=== PATIENT | female | born 1995 | race Caucasian/White ===

== ENCOUNTER 2017-07-20 05:08 | Day surgery (SDC) | payer SELFPAY ==
--- NOTE | 2017-07-19 11:48 | GHP ---
[f rep st] PREOP HISTORY AND PHYSICAL DATE OF PROCEDURE: 07/20/2017 at 7:15 a.m. SURGERY TO BE PERFORMED: Left Bartholin gland cyst marsupialization. HISTORY OF PRESENT ILLNESS: Mariana is a 22-year-old 0 who first presented with a persistent vaginal cyst for the last 2-1/2 weeks. It started off small, was growing, and is now increasing in pain. It was not drained. She was seen in the Urgent Care on 07/10/2017 and given p.o. Bactrim for 3 days , but no procedures were attempted to drain or open it up. She denies fever, chills, myalgia, or any systemic flu-like symptoms. She does have a history of folliculitis, but never any persistent Bartholin's glands or any other vulvar gland cysts. She was first evaluated on 07/15/2017 and this was found to be 2 to 3 cm and fluctuant. I and D was performed, however, the Bartholin's gland is deep and we had a difficult time entering the cyst wall. Two different incisions were made to attempt to drain the cyst and a Word catheter was placed in the inner labial incision to induce drainage. The patient was continued on her Bactrim and instructed to continue on sitz baths twice a day and return to the office on 07/19/2017. Today her cyst is persistent and increasing in pain. She has completed her Bactrim course and has tried sitz baths. The Word catheter was still in place and the cyst was persistent. I removed the Word catheter and she is in increasing pain. I offered another office I and D versus taking her to the operating room to do a marsupialization and the patient prefers to have anesthesia and a marsupialization for her persistent Bartholin's gland cyst. PAST GYNECOLOGIC HISTORY: She has a Mirena IUD in place and does not have regular periods. This was placed without difficulty. She has a history of an abnormal Pap in 2014 with ASCUS positive HPV. Biopsies were negative. Repeat Paps have been normal since. No other history of any STDs. She is 1 and has never been . PAST MEDICAL HISTORY: Asthma, worse in childhood. She was seen in the ER several times, but never hospitalized. She uses a metered-dose inhaler for exercise as needed and also when she has a URI. She also has a history of frequent UTIs, which is better, and a history of anxiety. She is not on any medications and has not currently been treated with therapy. PAST SURGICAL HISTORY: None. ALLERGIES: Penicillin gave her a small childhood reaction, she thinks a rash. MEDICATIONS: She is not on any current prescribed medication, but she takes a multivitamin, vitamin B12, and CBD oil daily for her anxiety. FAMILY HISTORY: Her father of bile duct cancer at age 53. Her mother is living and healthy with mild hypertension. She also had an aunt who of bile duct cancer. No other significant family history. SOCIAL HISTORY: She is single with no current relationship. She denies tobacco use. She admits to alcohol daily and daily marijuana use as well as CBD oil, self medicating for her anxiety. No other drug use. 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 REVIEW OF SYSTEMS: Negative, except for pertinent positives as above in the HPI. PHYSICAL EXAMINATION: VITAL SIGNS: Blood pressure is 114/58 and weight is 160. GENERAL: She is a well-developed and well-nourished white female in no acute distress, except for pain from the Bartholin's gland cyst. LUNGS: Clear to auscultation bilaterally. HEART: Regular rate and rhythm with no murmur. ABDOMEN: Soft, nontender, and nondistended with normal bowel sounds. PELVIC: There is a 3 x 4 cm Bartholin's gland cyst in the left lower labia. The small incision areas have small purulent drainage. No foul odor. No aggressive bleeding. The patient is extremely tender on exam. ASSESSMENT AND PLAN: This is a 22-year-old 0 with a persistent left Bartholin's gland cyst that failed in office I and D. The patient will be taken to the operating room for marsupialization. She understands the risks and benefits with the risks including bleeding, infection, damage to the vulva and vagina, recurrence of Bartholin's gland cyst, and dyspareunia. She understood these risks and benefits and agreed to proceed. /[id number]/MODL MTDD
[2017-07-20] MEDS ORDERED: LIDOCAINE 1% 2 ML INJ ONE (05:35)
[2017-07-20] MEDS ORDERED: LIDOCAINE 1% 2 ML INJ ID PRN (06:10)
[2017-07-20] MEDS ORDERED: LR 1,000 ML IV ONE (06:10)
[2017-07-20] MEDS ORDERED: BUPIVACAINE 0.25% 30 ML SDV ONE (06:45)
[2017-07-20] MEDS ORDERED: MIDAZOLAM 2 MG/2 ML VIAL IVP ONE (07:04)
--- NOTE | 2017-07-20 07:06 | PDANEPAE ---
ANE History of Present Illness Batholini cyst ANE Past Medical History - Pulmonary History Hx Sleep Apnea: No Sleep Apnea Screening Result - Last Documented: Negative ANE Review of Systems Review of Systems: ANE Patient History - Allergies Allergies/Adverse Reactions: Penicillins Allergy (Unknown, Verified 07/20/17 05:48) Rash - Home Medications Home Medications: CEPHALEXIN 500 mg PO TID 07/20/17 [Last Taken 07/19/17 18:00] Hydrocodone Bit/Acetaminophen PO 07/20/17 [Last Taken 07/19/17 20:00] Multivitamin 07/20/17 [Last Taken 07/13/17] - NPO status NPO Since - Liquids (Date): 07/19/17 NPO Since - Liquids (Time): 20:30 NPO Since - Solids (Date): 07/19/17 NPO Since - Solids (Time): 20:00 ANE Labs/Vital Signs - Vital Signs Blood Pressure: 117/69 Heart Rate: 72 Respiratory Rate: 18 O2 Sat (%): 97 Height: 170.18 cm Weight: 71.668 kg ANE Physical Exam - Airway Neck exam: FROM Mallampati Score: Class 1 - Pulmonary Pulmonary: no respiratory distress - Cardiovascular Cardiovascular: regular rate and rhythym - ASA Status ASA Status: II ANE Anesthesia Plan Anesthesia Plan: GA w LMA
[2017-07-20] MEDS ORDERED: ceFAZolin 2 GM/SWFI 2 GM/20 ML SYR IVP ONE (07:08)
[2017-07-20] MEDS ORDERED: fentaNYL 100 MCG/2 ML INJ ONE ×3 (07:09→08:41)
[2017-07-20] MEDS ORDERED: PROPOFOL 200 MG/20 ML VIAL ONE ×2 (07:09)
--- NOTE | 2017-07-20 07:09 | PDHPUP ---
History & Physical Update H&P update statement: This history and physical update is based on an assessment of the patient which was completed after admission or registration (within 24 hours), but prior to the surgery/procedure.
[2017-07-20] MEDS ORDERED: ceFAZolin 2 GM/SWFI 20 ML SYR IVP ONE (07:12)
[2017-07-20] MEDS ORDERED: ONDANSETRON 4 MG/2 ML VIAL ONE (07:35)
[2017-07-20] MEDS ORDERED: DEXAMETHASONE 4 MG/ML VIAL ONE (07:35)
[2017-07-20] MEDS ORDERED: SILVER NITRATE APPLICATOR 1 APPL TP ONE (07:41)
[2017-07-20] MEDS ORDERED: HYDROmorphONE/DILAUDID 1 MG/ML INJ IVP PRN (08:04)
[2017-07-20] MEDS ORDERED: PROMETHAZINE HCL 25 MG/ML INJ IVP PRN (08:04)
[2017-07-20] MEDS ORDERED: fentaNYL 100 MCG/2 ML INJ IVP PRN (08:04)
[2017-07-20] MEDS ORDERED: OXYCODONE/APAP 5/325 TAB PO PRN (08:04)
[2017-07-20] MEDS ORDERED: ONDANSETRON 4 MG/2 ML VIAL IVP PRN (08:04)
[2017-07-20] MEDS ORDERED: NALOXONE HCL 0.4 MG/ML INJ IVP PRN (08:04)
[2017-07-20] MEDS ORDERED: IBUPROFEN 600 MG TAB PO PRN (08:19)
--- NOTE | 2017-07-20 08:21 | POSTANESTH ---
Post Anesthetic Evaluation Cardiovascular Status: Normal, Stable Respiratory Status: Normal, Stable Level of Consciousness/Mental Status: Can Participate in Eval Pain Control: Adequate, Prn Tx Ordered Nausea/Vomiting Control: Adequate, Prn Tx Ordered Complications Possibly Related to Anesthesia: None Noted
--- NOTE | 2017-07-20 08:22 | POSTOPPROG ---
Post Op Note Date of Operation: 07/20/17 Surgeon: Joy Karimi Shock Absorber Installer: eDsi Pichardo CNM Anesthesiologist: Dr. Dunn Anesthesia: GET(General Endotracheal) Pre-op Diagnosis: Left Bartholian's cyst abscess Post-op Diagnosis: same Procedure: Left Bartholian's cyst abscess incision and drainage and marsupilization Findings: Left Bartholian's cyst abscess Inf/Abcess present in the surg proc area at time of surgery?: Yes Depth: Superfical (Skin SQ) EBL: 50-100 Total fluids administered: 700 Complications: none Drains: Other (iodoform gauze)
[2017-07-20] MEDS ORDERED: FLUCONAZOLE 150 MG TAB PO ONE (08:24)
[2017-07-20] MEDS ORDERED: HYDROmorphONE/DILAUDID 1 MG/ML INJ ONE (08:38)
--- NOTE | 2017-07-20 09:02 | GOP ---
[f rep st] OPERATIVE REPORT DATE OF OPERATION: 07/20/2017 SURGEON: Joy Karimi MD EXHIBITION SPECIALIST: Desi Pichardo, certified nurse mate first. ANESTHESIA: General anesthesia. ANESTHESIOLOGIST: Dr. Dunn. PREOPERATIVE DIAGNOSIS: Left Bartholin cyst abscess. POSTOPERATIVE DIAGNOSIS: Left Bartholin cyst abscess. PROCEDURE PERFORMED: Left Bartholin cyst abscess incision and drainage and marsupialization. FINDINGS: There was an infected cavity. Patient got IV Ancef and was sent home on oral Keflex. SPECIMENS: There was no specimen. ESTIMATED BLOOD LOSS: 50-100 cc. INDICATIONS: Mariana is a 22-year-old 0, who presented with a persistent vaginal cyst for appr oximately 2-1/2 weeks, started off small, was growing, and increasing in pain. She was initially see n at urgent care, started on p.o. Bactrim and sitz baths, but did not improve. I saw her in the offi ce on 07/15/2017, and it was 2-3 cm and fluctuant. I and D was performed. However, the Bartholin gl and was deep and it did not get into the cyst cavity initially. We tried a Word catheter, which was not successful. When I saw her on the , the cyst was worse and we made a decision to either repe at the I and D or take her to the operating room for marsupialization. The patient agreed to the pro cedure. She understood the risks and benefits, the risks including bleeding, infection, damage to th e vagina, recurrence of the cyst, and scar tissue which could cause dyspareunia. She understood thes e risks and benefits. Agreed to proceed. DESCRIPTION OF PROCEDURE: Patient was taken to the operating room where she was placed under general anesthesia without difficulty. She was prepped and draped in the dorsal lithotomy position and her bladder was drained with a red rubber catheter. After a WHO time-out was performed, the left labia m inora was grasped with Allis clamps and deflected laterally to visualize the cyst wall deep to the hy menal ring. A linear incision was made approximately 2 cm long through the hymenal ring into the cys t wall and immediately a large amount of purulent material was removed. The incision was extended to ensure that it was in the cyst wall and the cavity was copiously irrigated with warm normal saline. The cyst cavity was then grasped with Allis clamps and there was a large amount of necrotic tissue i n the cyst cavity and along the vaginal wall. A marsupialization was performed with a 2-0 Vicryl in a running circumferential fashion of imbricating suture of 2-0 Vicryl in a counter-clockwise fashion to open up the cavity and attach it to normal squamous skin cells. There was continued bleeding in t he part of the cyst cavity and this was cauterized with the Bovie, and necrotic tissue was removed, a nd hemostasis was obtained. The cyst cavity was then packed with quarter-inch iodoform gauze. Hemos tasis was assured. The patient was taken to the operating room. Sponge, lap, needle, and instrument counts were correct x3. The patient tolerated the procedure well. URINE OUTPUT: Not measured. IV FLUIDS: 700. /[id number]/MODL
[2017-07-20] MEDS ORDERED: OXYCODONE/APAP 5/325 TAB ONE (09:26)
[2017-07-20 09:31] VITALS: BP 126/81; PULSE 80; RESP 14; TEMP 98.8; O2SAT 98
== END 2017-07-20 09:58 | disposition home or self-care (01) ==
LOC: FSGY 05:08
PROVIDERS: ATTEND Obstetrics & Gynecology
PROC: 0U9L0ZZ Drainage of Vestibular Gland, Open Approach (ICD-10-PCS; principal; 2017-07-20 07:15)
DX: N75.0 Cyst of Bartholin's gland (principal); F41.9 Anxiety disorder, unspecified; Z87.440 Personal history of urinary (tract) infections; Z88.0 Allergy status to penicillin
CPT/HCPCS: J0171; J0690; J1100; J1170; J2250; J2405; J2704; J3010